=== PATIENT | female | born 1965 | race American Indian/Alaskan Native ===

== ENCOUNTER 2017-03-25 03:03 | Emergency (ER) | payer MEDICAID ==
--- NOTE | 2017-03-25 03:15 | EDM.PDOC ---
ED HPI SEIZURE COMPLAINT - General Source of Information: Reports: Patient, EMS History Limitations: Reports: No limitations - History of Present Illness Timing/Duration: Reports: minutes:, resolved prior to arrival Event (Witnessed/Unwitnessed): witnessed Quality: Reports: focal shaking ( and stiffening) Severity: moderate Context: Denies: new/change in medications, missed med dose(s), illness, photo stimulation Pre Event Symptom(s): Reports: no other symptoms Event Symptoms: Reports: tongue biting Post Event Symptoms: Denies: confused, altered speech <Huma Sal - Last Filed: 03/25/17 06:46> <Steven Rodriguez - Last Filed: 03/25/17 07:34> - General Stated Complaint: IN BY AMBULANCE Time Seen by Provider: 03/25/17 03:03 - History of Present Illness INITIAL COMMENTS - FREE TEXT/NARRATIVE: ED via [facility] with hx seizure x 2. First witnessed by family and EMS called. @nd by EMS, focal with stiffening. No incontinence. Prior to seizure per EMS patient alert oriented. moving all extremities and answering questions appropriately. Following 2nd seizure EMS gave 5mg valium. Patient drowsy on arrival but able to answer questions. Last seizure reported one year ago. Notes she is taking medications as prescribed. Denies any recent illness. Drug paraphernalia found in patients pocket with white powder (Huma Sal ) - Related Data Allergies/ADRs: Allergies Allergy/AdvReac Type Severity Reaction Status Date / Time ibuprofen [From Motrin] Allergy Unknown NAUSEA,VOMI Verified 03/25/17 02:55 TING omeprazole [From Prilosec] Allergy Unknown Rash Verified 03/25/17 02:55 omeprazole magnesium Allergy Unknown Rash Verified 03/25/17 02:55 [From Prilosec] sulfamethoxazole Allergy Unknown UKNOWN Verified 03/25/17 02:55 [From Bactrim] trimethoprim [From Bactrim] Allergy Unknown [place] Verified 03/25/17 02:55 amoxicillin [Amoxicillin] Allergy Hives Verified 03/25/17 02:55 aspirin Allergy Bleeding Verified 03/25/17 02:55 codeine Allergy Stomach Verified 03/25/17 02:55 Upset doxycycline Allergy Rash Verified 03/25/17 02:55 fosphenytoin [Fosphenytoin] Allergy Hives Verified 03/25/17 02:55 meperidine HCl [From Demerol] Allergy Rash Verified 03/25/17 02:55 Penicillins Allergy Stomach Verified 03/25/17 02:55 Upset PRILOSE Allergy Unknown Rash Uncoded 03/25/17 02:55 Home Meds: Home Meds PHENobarbital 32.4 mg PO TID 01/28/14 [History] Phenytoin Sodium Extended [Dilantin] 100 mg PO QID 03/28/14 [History] Loratadine 10 mg PO DAILY 11/28/16 [History] PARoxetine HCl [Paroxetine HCl] 10 mg PO DAILY 11/28/16 [History] Ranitidine HCl 150 mg PO BID 11/28/16 [History] Past Medical History Respiratory History: Reports: Bronchitis, recurrent Other Respiratory History: states she was told her left lung was swollen at one time Neurological History: Reports: Frequent repetitive habits (TICS), Seizure Psychiatric History: Reports: Anxiety Endocrine/Metabolic History: Reports: Diabetes, type II Other Dermatologic History: takes Benadryl daily for itchy skin <Huma Sal - Last Filed: 03/25/17 06:46> Social & Family History - Family History Family Medical History: Noncontributory - Tobacco Use Smoking Status *Q: Current Every Day Smoker Years of Tobacco use: 4 Packs/Tins Daily: 0.5 Used Tobacco, but Quit: No Second Hand Smoke Exposure: No - Alcohol Use Days Per Week of Alcohol Use: 0 - Recreational Drug Use Recreational Drug Use: No - Living Situation & Occupation Living situation: Reports: with family Occupation: disabled <Huma Sal - Last Filed: 03/25/17 06:46> ED ROS GENERAL - Review of Systems Review Of Systems: See Below Constitutional: Reports: no symptoms HEENT: Reports: No symptoms Respiratory: Reports: No Symptoms Cardiovascular: Reports: No symptoms GI/Abdominal: Reports: No symptoms : Reports: no symptoms Musculoskeletal: Reports: no symptoms Neurological: Reports: Seizure Psychiatric: Reports: No symptoms <Huma Sal - Last Filed: 03/25/17 06:46> - Physical Exam Exam: See Below Exam Limited By: No limitations General Appearance: mild distress, obese, other (drowsy, arouses and answers questions) Ears: normal external exam Nose: normal inspection Throat/Mouth: Normal gums, Evidence of tongue biting. No: Normal teeth (absent) Head Exam: atraumatic, normocephalic Neck: normal inspection Respiratory/Chest: no respiratory distress, lungs clear, normal breath sounds Cardiovascular: normal peripheral pulses, regular rate, rhythm GI/Abdominal: normal bowel sounds Neuro Exam (Abbreviated): oriented, normal cognition, slow to respond Extremities: normal inspection Skin Exam: Warm, Dry, Intact, Tattoo(s) <Huma Sal - Last Filed: 03/25/17 06:46> EKG INTERPRETATION Rhythm: NSR <Huma Sal - Last Filed: 03/25/17 06:46> Course <Huma Sal - Last Filed: 03/25/17 06:46> <Steven Rodriguez - Last Filed: 03/25/17 07:34> - Vital Signs Last Recorded V/S: Last Vital Signs Temp 37.0 C 03/25/17 03:07 Pulse 102 H 03/25/17 03:07 Resp 16 03/25/17 03:07 BP 131/75 03/25/17 03:07 Pulse Ox 96 03/25/17 03:39 (Huma Sal) (Steven Rodriguez) - Orders/Labs/Meds Orders: Active Orders 24 hr Category Date Time Status EKG 12 Lead [EKG Documentation Completion] [RC] URGENT Care 03/25/17 03:06 Active Regular Diet [DIET] Diet 03/25/17 Breakfast Active (Huma Sal) (Steven Rodriguez) Labs: Laboratory Tests 03/25/17 03/25/17 03/25/17 Range/Units 03:20 03:20 03:25 WBC 13.4 H (5.0-10.0) 10^3/uL RBC 4.69 (4.2-5.4) 10^6/uL Hgb 13.4 (12.0-16.0) g/dL Hct 40.7 (37.0-47.0) % MCV 86.8 (80-100) fL MCH 28.6 (27.0-34.0) pg MCHC 32.9 L (33.0-35.0) g/dL Plt Count 307 (150-450) 10^3/uL Neut % (Auto) 74.7 (42.2-75.2) % Lymph % (Auto) 11.7 L (20.5-50.1) % Dickens % (Auto) 8.0 (2-8) % Eos % (Auto) 5.3 H (1.0-3.0) % Baso % (Auto) 0.3 (0.0-1.0) % Sodium (135-145) mmol/L Potassium (3.6-5.0) mmol/L Chloride (101-111) mmol/L Carbon Dioxide (21.0-31.0) mmol/L Anion Gap BUN (7-18) mg/dL Creatinine (0.6-1.3) mg/dL Est Cr Clr Drug Dosing mL/min Estimated GFR (MDRD) BUN/Creatinine Ratio Glucose (74-105) mg/dL Calcium (8.4-10.2) mg/dl Total Bilirubin (0.2-1.0) mg/dL AST (10-42) IU/L ALT (10-60) IU/L Alkaline Phosphatase (42-121) IU/L Troponin I (0.00-0.08) ng/mL Total Protein (6.7-8.2) g/dl Albumin (3.2-5.5) g/dl Globulin Albumin/Globulin Ratio Urine Color Yellow (YELLOW) Urine Appearance Clear (CLEAR) Urine pH 5.5 (5.0-9.0) Ur Specific [place] <= 1.005 (1.005-1.030) Urine Protein Negative (NEGATIVE) Urine Glucose (UA) Negative (NEGATIVE) Urine Ketones Negative (NEGATIVE) Urine Occult Blood Negative (NEGATIVE) Urine Nitrite Negative (NEGATIVE) Urine Bilirubin Negative (NEGATIVE) Urine Urobilinogen 0.2 (0.2-1.0) mg/dL Ur Leukocyte Esterase Negative (NEGATIVE) Urine RBC Not seen /HPF Urine WBC 10-20 H (0-5/HPF) /HPF Ur Epithelial Cells Moderate H /HPF Urine Bacteria Moderate H (0-FEW/HPF) /HPF Urine Yeast Few H (0/HPF) /HPF Urine Opiates Screen Negative (NEGATIVE) Ur Oxycodone Screen Negative (NEGATIVE) Urine Methadone Screen Negative (NEGATIVE) Ur Barbiturates Screen Positive H (NEGATIVE) Phenytoin (10-20) ug/dL U Tricyclic Antidepress Negative (NEGATIVE) Ur Phencyclidine Scrn Negative (NEGATIVE) Ur Amphetamine Screen Negative (NEGATIVE) U Methamphetamines Scrn Positive H (NEGATIVE) Urine MDMA Screen Negative (NEGATIVE) U Benzodiazepines Scrn Negative (NEGATIVE) Urine Cocaine Screen Negative (NEGATIVE) U Marijuana (THC) Screen Negative (NEGATIVE) Ethyl Alcohol mg/dL 03/25/17 03/25/17 Range/Units 03:25 03:25 WBC (5.0-10.0) 10^3/uL RBC (4.2-5.4) 10^6/uL Hgb (12.0-16.0) g/dL Hct (37.0-47.0) % MCV (80-100) fL MCH (27.0-34.0) pg MCHC (33.0-35.0) g/dL Plt Count (150-450) 10^3/uL Neut % (Auto) (42.2-75.2) % Lymph % (Auto) (20.5-50.1) % Dickens % (Auto) (2-8) % Eos % (Auto) (1.0-3.0) % Baso % (Auto) (0.0-1.0) % Sodium 135 (135-145) mmol/L Potassium 3.2 L (3.6-5.0) mmol/L Chloride 106 (101-111) mmol/L Carbon Dioxide 20.0 L (21.0-31.0) mmol/L Anion Gap 12.2 BUN 15 (7-18) mg/dL Creatinine 0.7 (0.6-1.3) mg/dL Est Cr Clr Drug Dosing 82.10 mL/min Estimated GFR (MDRD) > 60 BUN/Creatinine Ratio 21.42 Glucose 118 H (74-105) mg/dL Calcium 8.4 (8.4-10.2) mg/dl Total Bilirubin 0.3 (0.2-1.0) mg/dL AST 18 (10-42) IU/L ALT 17 (10-60) IU/L Alkaline Phosphatase 170 H (42-121) IU/L Troponin I < 0.02 (0.00-0.08) ng/mL Total Protein 7.8 (6.7-8.2) g/dl Albumin 3.9 (3.2-5.5) g/dl Globulin 3.9 Albumin/Globulin Ratio 1.00 Urine Color (YELLOW) Urine Appearance (CLEAR) Urine pH (5.0-9.0) Ur Specific [place] (1.005-1.030) Urine Protein (NEGATIVE) Urine Glucose (UA) (NEGATIVE) Urine Ketones (NEGATIVE) Urine Occult Blood (NEGATIVE) Urine Nitrite (NEGATIVE) Urine Bilirubin (NEGATIVE) Urine Urobilinogen (0.2-1.0) mg/dL Ur Leukocyte Esterase (NEGATIVE) Urine RBC /HPF Urine WBC (0-5/HPF) /HPF Ur Epithelial Cells /HPF Urine Bacteria (0-FEW/HPF) /HPF Urine Yeast (0/HPF) /HPF Urine Opiates Screen (NEGATIVE) Ur Oxycodone Screen (NEGATIVE) Urine Methadone Screen (NEGATIVE) Ur Barbiturates Screen (NEGATIVE) Phenytoin 4.4 L (10-20) ug/dL U Tricyclic Antidepress (NEGATIVE) Ur Phencyclidine Scrn (NEGATIVE) Ur Amphetamine Screen (NEGATIVE) U Methamphetamines Scrn (NEGATIVE) Urine MDMA Screen (NEGATIVE) U Benzodiazepines Scrn (NEGATIVE) Urine Cocaine Screen (NEGATIVE) U Marijuana (THC) Screen (NEGATIVE) Ethyl Alcohol < 5 mg/dL (Steven Rodriguez) Meds: Medications Discontinued Medications Generic Name Dose Route Start Last Admin Trade Name Boq PRN Reason Stop Dose Admin Phenytoin Sodium 250 mg 03/25/17 03:56 03/25/17 04:09 Phenytoin IVPUSH 03/25/17 03:57 250 mg ONETIME ONE Administration Phenytoin Sodium 100 mg 03/25/17 04:03 03/25/17 04:14 Phenytoin PO 03/25/17 04:04 100 mg ONETIME ONE Administration Potassium Chloride 20 meq 03/25/17 04:03 03/25/17 04:14 Klor-Con 10 PO 03/25/17 04:04 20 meq ONETIME ONE Administration (Steven Rodriguez) - Re-Assessments/Exams Free Text/Narrative Re-Assessment/Exam: 03/25/17 03:46 UDS methamphetamine positive. (Huma Sal) Departure - Departure Condition: good <Huma Sal - Last Filed: 03/25/17 06:46> - Departure Time of Disposition: 07:33 <Steven Rodriguez - Last Filed: 03/25/17 07:34> - Departure Disposition: Home, Self-Care 01 Clinical Impression: Seizure disorder, Subtherapeutic serum phenytoin level, Methamphetamine abuse Instructions: Seizure, Adult, [id number] Forms: ED Department Discharge Additional Instructions: Take seizure medications as prescribed. Do not use methamphetamine. Seek substance abuse treatment if needed. Recheck Dilantin level on Tuesday in Clinic.
[2017-03-25 03:48] LABS: CHLORIDE,CL 106 mmol/L (101-111); SODIUM,NA 135 mmol/L (135-145)
[2017-03-25] MEDS ORDERED: Phenytoin 250 MG/5 ML SDV IVPUSH ONE (03:56)
[2017-03-25] MEDS ORDERED: Potassium Chloride 10 MEQ Tab.ER PO ONE (04:03)
[2017-03-25] MEDS ORDERED: Phenytoin 100 MG Cap.ER PO ONE (04:03)
[2017-03-25 07:49] VITALS: BP 139/76
--- NOTE | 2017-03-27 03:02 | EKG ---
03/25/2017 - GILLIAN HARRINGTON - TIME OF EK:10. EKG, per my reading, shows sinus rhythm with inferior Q-waves. [facility] /[id number]
== END 2017-03-25 10:52 | disposition home or self-care (01) ==
LOC: DL.ED 03:03
DX: G40.909 Epilepsy, unspecified, not intractable, without status epilepticus (principal); R78.89 Finding of other specified substances, not normally found in blood; F15.10 Other stimulant abuse, uncomplicated; F17.210 Nicotine dependence, cigarettes, uncomplicated; E11.9 Type 2 diabetes mellitus without complications
CPT/HCPCS: 36415; 70450; 80053; 80185; 80305; 81001; 84484; 85025; 93005; 96374; 99285; A9270; G0480; J1165

== ENCOUNTER 2017-05-25 20:14 | Emergency (ER) | payer MEDICAID ==
[2017-05-25 20:19] VITALS: BP 132/68
--- NOTE | 2017-05-25 20:32 | EDM.PDOC ---
ED HPI GENERAL MEDICAL PROBLEM - General Chief Complaint: Lower Extremity Injury/Pain Stated Complaint: AMBULANCE Time Seen by Provider: 05/25/17 20:20 Source of Information: Reports: Patient, EMS History Limitations: Reports: No Limitations - History of Present Illness INITIAL COMMENTS - FREE TEXT/NARRATIVE: This 52 yo female patient was brought to the ED by [facility] with left foot pain. The patient reports she tripped on Tuesday and has gotten worse since that time. The patient reports she is unable to walk due to the pain. Onset Date: 05/22/17 Duration: Constant Location: Reports: Lower Extremity, Left Quality: Reports: Ache Severity: Mild Improves with: Reports: None Worsens with: Reports: None Associated Symptoms: Reports: No Other Symptoms Treatments [employer]: Reports: Cold Therapy Left Feet Pain Score (Numeric/FACES): 8 - Related Data Allergies Allergy/AdvReac Type Severity Reaction Status Date / Time ibuprofen [From Motrin] Allergy Unknown NAUSEA,VOMI Verified 05/25/17 20:16 TING omeprazole [From Prilosec] Allergy Unknown Rash Verified 05/25/17 20:16 omeprazole magnesium Allergy Unknown Rash Verified 05/25/17 20:16 [From Prilosec] sulfamethoxazole Allergy Unknown [place] Verified 05/25/17 20:16 [From Bactrim] trimethoprim [From Bactrim] Allergy Unknown [place] Verified 05/25/17 20:16 amoxicillin [Amoxicillin] Allergy Hives Verified 05/25/17 20:16 aspirin Allergy Bleeding Verified 05/25/17 20:16 codeine Allergy Stomach Verified 05/25/17 20:16 Upset doxycycline Allergy Rash Verified 05/25/17 20:16 fosphenytoin [Fosphenytoin] Allergy Hives Verified 05/25/17 20:16 meperidine HCl [From Demerol] Allergy Rash Verified 05/25/17 20:16 Penicillins Allergy Stomach Verified 05/25/17 20:16 Upset PRILOSE Allergy Unknown Rash Uncoded 03/25/17 02:55 Home Meds: Home Meds PHENobarbital 30 mg PO QID 01/28/14 [History] Phenytoin Sodium Extended [Dilantin] 100 mg PO ASDIRECTED 03/28/14 [History] Loratadine 10 mg PO DAILY 11/28/16 [History] PARoxetine HCl [Paroxetine HCl] 10 mg PO DAILY 11/28/16 [History] Ranitidine HCl 150 mg PO BID 11/28/16 [History] Past Medical History Respiratory History: Reports: Bronchitis, Recurrent Other Respiratory History: states she was told her left lung was swollen at one time Gastrointestinal History: Reports: GERD Genitourinary History: Reports: Urinary Incontinence Neurological History: Reports: Frequent Repetitive Habits (TICS), Seizure Psychiatric History: Reports: Anxiety Endocrine/Metabolic History: Reports: Diabetes, Type II Other Dermatologic History: takes Benadryl daily for itchy skin - Past Surgical History GI Surgical History: Reports: Cholecystectomy Social & Family History - Family History Family Medical History: Noncontributory - Tobacco Use Smoking Status *Q: Former Smoker Years of Tobacco use: 4 Packs/Tins Daily: 0.5 Used Tobacco, but Quit: Yes Month Tobacco Last Used: 2014 Second Hand Smoke Exposure: No - Caffeine Use Caffeine Use: Reports: Coffee, Soda - Alcohol Use Days Per Week of Alcohol Use: 0 - Recreational Drug Use Recreational Drug Use: No - Living Situation & Occupation Living situation: Reports: with Family Occupation: Disabled Review of Systems - Review of Systems Review Of Systems: ROS reveals no pertinent complaints other than HPI. ED EXAM, GENERAL - Physical Exam Exam: See Below Exam Limited By: No Limitations General Appearance: Alert, WD/WN, Moderate Distress Eye Exam: Bilateral Eye: EOMI, Normal Inspection, PERRL Ears: Normal External Exam, Normal Canal, Hearing Grossly Normal, Normal TMs Nose: Normal Inspection, Normal Mucosa, No Blood Throat/Mouth: Normal Inspection, Normal Lips, Normal Teeth, Normal Gums, Normal Oropharynx, Normal Voice, No Airway Compromise Head: Atraumatic, Normocephalic Neck: Normal Inspection, Supple, Non-Tender, Full Range of Motion Respiratory/Chest: No Respiratory Distress, Lungs Clear, Normal Breath Sounds, No Accessory Muscle Use, Chest Non-Tender Cardiovascular: Normal Peripheral Pulses, Regular Rate, Rhythm, No Edema, No Gallop, No JVD, No Murmur, No Rub GI/Abdominal: Normal Bowel Sounds, Soft, Non-Tender, No Organomegaly, No Distention, No Abnormal Bruit, No Mass (Female) Exam: Deferred Rectal (Female) Exam: Deferred Back Exam: Normal Inspection, Full Range of Motion, NT Extremities: Other (left foot) Neurological: Alert, Oriented, CN II-XII Intact, Normal Cognition, Normal Gait, Normal Reflexes, No Motor/Sensory Deficits Psychiatric: Normal Affect, Normal Mood Skin Exam: Warm, Dry, Intact, Normal Color, No Rash Lymphatic: No Adenopathy Course - Vital Signs Last Recorded V/S: Last Vital Signs Temp 36.6 C 05/25/17 20:18 Pulse 80 05/25/17 20:18 Resp 20 05/25/17 20:18 BP 132/68 05/25/17 20:18 Pulse Ox 98 05/25/17 20:18 - Orders/Labs/Meds Orders: Active Orders 24 hr Category Date Time Status DME for Discharge [COMM] Urgent Oth 05/25/17 21:18 Ordered Meds: Medications Discontinued Medications Generic Name Dose Route Start Last Admin Trade Name [place] PRN Reason Stop Dose Admin Hydrocodone Bitart/Acetaminophen 1 tab 05/25/17 21:23 [place] 325-10 Mg PO 05/25/17 21:24 ONETIME ONE Departure - Departure Time of Disposition: 21:33 Disposition: Home, Self-Care 01 Condition: Fair Clinical Impression: Metatarsal bone fracture Qualifiers: Encounter type: initial encounter Metatarsal bone: unspecified metatarsal Fracture type: closed Fracture alignment: nondisplaced Laterality: left Qualified Code(s): S92.302A - Fracture of unspecified metatarsal bone(s), left foot, initial encounter for closed fracture - Discharge Information Instructions: Metatarsal Fracture Forms: ED Department Discharge Care Plan Goals: The patient was advised of the examination and x-ray results during the visit. The patient was placed in a walking boot for immobilization and given a set of crutches. The patient is to remain non weight bearing on her left foot. The patient should follow-up with podiatry at [facility] this week for continued evaluation and further management. The patient was given a dose of [place] while in the ED. If the patient has any additional symptoms or concerns, the patient should follow-up with her primary care facility or return to the emergency department. - My Orders Last 24 Hours: My Active Orders 05/25/17 21:18 DME for Discharge [COMM] Urgent - Assessment/Plan Last 24 Hours: My Active Orders 05/25/17 21:18 DME for Discharge [COMM] Urgent
[2017-05-25] MEDS ORDERED: Acetaminophen/HYDROcodone 325-10 MG Tab PO ONE (21:23)
== END 2017-05-25 21:50 | disposition home or self-care (01) ==
LOC: DL.ED 20:14
DX: S92.512A Displaced fracture of proximal phalanx of left lesser toe(s), initial encounter for closed fracture (principal); W18.40XA Slipping, tripping and stumbling without falling, unspecified, initial encounter; Z88.5 Allergy status to narcotic agent; Z79.899 Other long term (current) drug therapy; K21.9 Gastro-esophageal reflux disease without esophagitis; F41.9 Anxiety disorder, unspecified; E11.9 Type 2 diabetes mellitus without complications; Z90.49 Acquired absence of other specified parts of digestive tract; Z88.8 Allergy status to other drugs, medicaments and biological substances; Z87.891 Personal history of nicotine dependence
CPT/HCPCS: 73630; 99283; A9270

== ENCOUNTER 2017-07-23 13:40 | Emergency (ER) | payer MEDICAID ==
[2017-07-23] MEDS ORDERED: Sodium Chloride 0.9% 10 ML Syringe FLUSH PRN (13:42)
[2017-07-23] MEDS ORDERED: Sodium Chloride 0.9% 1,000 ML IV ONE (13:50)
[2017-07-23 14:18] LABS: CHLORIDE,CL 110 mmol/L (101-111); SODIUM,NA 142 mmol/L (135-145)
[2017-07-23] MEDS ORDERED: Potassium Chloride 10 MEQ in Premix Bag 1 BAG IV ONE (14:46)
[2017-07-23] MEDS ORDERED: Phenytoin 250 MG/5 ML SDV IVPUSH ONE (14:58)
--- NOTE | 2017-07-23 16:47 | EDM.PDOC ---
Scribed by Tere Bermudez 07/23/17 1612 for Steven Rodriguez MD ED HPI GENERAL MEDICAL PROBLEM - General Chief Complaint: Neuro Symptoms/Deficits Stated Complaint: IN BY AMBULANCE Time Seen by Provider: 07/23/17 13:37 Source of Information: Reports: Patient, EMS, RN, RN Notes Reviewed - History of Present Illness INITIAL COMMENTS - FREE TEXT/NARRATIVE: Arrives from home by ambulance with complaint of 2 seizures, one at about 8 a.m. this morning and one about 1 p.m. Patient states that she has not missed any Dilantin or Phenobarbital doses. Both seizures were witnessed by family. Patient denies any injury (s) associated with the seizures. Denies pain, fever, chills, headache, nausea, vomiting or urinary symptoms. Location: Reports: Generalized Quality: Reports: Ache Severity: Moderate Improves with: Reports: None Worsens with: Reports: None Associated Symptoms: Reports: No Other Symptoms - Related Data Allergies Allergy/AdvReac Type Severity Reaction Status Date / Time ibuprofen [From Motrin] Allergy Unknown NAUSEA,VOMI Verified 05/25/17 20:16 TING omeprazole [From Prilosec] Allergy Unknown Rash Verified 05/25/17 20:16 omeprazole magnesium Allergy Unknown Rash Verified 05/25/17 20:16 [From Prilosec] sulfamethoxazole Allergy Unknown UKNOWN Verified 05/25/17 20:16 [From Bactrim] trimethoprim [From Bactrim] Allergy Unknown UKNOWN Verified 05/25/17 20:16 amoxicillin [Amoxicillin] Allergy Hives Verified 05/25/17 20:16 aspirin Allergy Bleeding Verified 05/25/17 20:16 codeine Allergy Stomach Verified 05/25/17 20:16 Upset doxycycline Allergy Rash Verified 05/25/17 20:16 fosphenytoin [Fosphenytoin] Allergy Hives Verified 05/25/17 20:16 meperidine HCl [From Demerol] Allergy Rash Verified 05/25/17 20:16 Penicillins Allergy Stomach Verified 05/25/17 20:16 Upset PRILOSE Allergy Unknown Rash Uncoded 03/25/17 02:55 Home Meds: Home Meds PHENobarbital 30 mg PO QID 01/28/14 [History] Phenytoin Sodium Extended [Dilantin] 100 mg PO QID 03/28/14 [History] PARoxetine HCl [Paroxetine HCl] 10 mg PO DAILY 11/28/16 [History] Ranitidine HCl 150 mg PO BID 11/28/16 [History] Albuterol [Proventil HFA] 2 puff INH ASDIRECTED PRN 07/23/17 [History] Melatonin 5 mg PO ASDIRECTED PRN 07/23/17 [History] diphenhydrAMINE [Benadryl] 1 cap PO BEDTIME PRN 07/23/17 [History] Past Medical History Respiratory History: Reports: Bronchitis, Recurrent Other Respiratory History: states she was told her left lung was swollen at one time Gastrointestinal History: Reports: GERD Genitourinary History: Reports: Urinary Incontinence Neurological History: Reports: Frequent Repetitive Habits (TICS), Seizure Psychiatric History: Reports: Anxiety Endocrine/Metabolic History: Reports: Diabetes, Type II Other Dermatologic History: takes Benadryl daily for itchy skin - Past Surgical History GI Surgical History: Reports: Cholecystectomy Social & Family History - Family History Family Medical History: Noncontributory - Tobacco Use Smoking Status *Q: Former Smoker Years of Tobacco use: 4 Packs/Tins Daily: 0.5 Used Tobacco, but Quit: Yes Month Tobacco Last Used: 2014 Second Hand Smoke Exposure: No - Caffeine Use Caffeine Use: Reports: Coffee, Soda - Alcohol Use Days Per Week of Alcohol Use: 0 - Recreational Drug Use Recreational Drug Use: No - Living Situation & Occupation Living situation: Reports: with Family Occupation: Disabled ED ROS GENERAL - Review of Systems Review Of Systems: ROS reveals no pertinent complaints other than HPI. - Physical Exam Exam: See Below Exam Limited By: No Limitations General Appearance: Other (chronically ill appearing. Obese.) Eye Exam: Bilateral Eye: Normal Inspection Ears: Normal External Exam, Normal Canal, Hearing Grossly Normal, Normal TMs Nose: Normal Inspection, Normal Mucosa, No Blood Throat/Mouth: Other (dry oral membranes. Missing teeth. ) Head Exam: Atraumatic, Normocephalic Neck: Full Range of Motion, Other (No nuchal rigidity) Respiratory/Chest: Other (occasional dry douch.) Cardiovascular: Normal Peripheral Pulses, Regular Rate, Rhythm, No Edema, No Gallop, No JVD, No Murmur, No Rub GI/Abdominal: Other (benign obese abdomen.) (Female) Exam: Deferred Rectal (Female) Exam: Deferred Neuro Exam (Abbreviated): Alert, Oriented, CN II-XII Intact, Normal Cognition, Normal Gait, Normal Reflexes, No Motor/Sensory Deficits Back Exam: Normal Inspection, Full Range of Motion, NT Extremities: Normal Inspection, Normal Range of Motion, Non-Tender, No Pedal Edema, Normal Capillary Refill Psychiatric: Normal Affect, Normal Mood Skin Exam: Other (veru superficial abrasion to left anterior carreno.) Course - Vital Signs Last Recorded V/S: Last Vital Signs Temp 36.2 C 07/23/17 15:14 Pulse 82 07/23/17 15:14 Resp 24 H 07/23/17 15:14 BP 104/60 07/23/17 15:14 Pulse Ox 100 07/23/17 15:14 - Orders/Labs/Meds Orders: Active Orders 24 hr Category Date Time Status Peripheral IV Care [RC] . DIRECTED Care 07/23/17 13:42 Active Sodium Chloride 0.9% [Saline Flush] Med 07/23/17 13:42 Active 10 ml FLUSH ASDIRECTED PRN Peripheral IV Insertion Adult [OM.PC] Stat Oth 07/23/17 13:41 Ordered Seizure Precautions [OM.PC] Routine Oth 07/23/17 14:41 Ordered Medication Orders Sodium Chloride (Saline Flush) 10 ml FLUSH ASDIRECTED PRN PRN Reason: Keep Vein Open Last Admin: 07/23/17 14:21 Dose: 10 ml Labs: Laboratory Tests 07/23/17 07/23/17 07/23/17 Range/Units 13:51 13:51 13:51 WBC 9.6 (5.0-10.0) 10^3/uL RBC 4.26 (4.2-5.4) 10^6/uL Hgb 12.1 (12.0-16.0) g/dL Hct 37.1 (37.0-47.0) % MCV 87.1 (80-100) fL MCH 28.4 (27.0-34.0) pg MCHC 32.6 L (33.0-35.0) g/dL Plt Count 287 (150-450) 10^3/uL Neut % (Auto) 76.5 H (42.2-75.2) % Lymph % (Auto) 8.6 L (20.5-50.1) % Holmes % (Auto) 8.9 H (2-8) % Eos % (Auto) 5.7 H (1.0-3.0) % Baso % (Auto) 0.3 (0.0-1.0) % Sodium 142 (135-145) mmol/L Potassium 3.0 L (3.6-5.0) mmol/L Chloride 110 (101-111) mmol/L Carbon Dioxide 21.0 (21.0-31.0) mmol/L Anion Gap 14.0 BUN 7 (7-18) mg/dL Creatinine 0.7 (0.6-1.3) mg/dL Est Cr Clr Drug Dosing 95.91 mL/min Estimated GFR (MDRD) > 60 BUN/Creatinine Ratio 10.00 Glucose 112 H (74-105) mg/dL Calcium 8.1 L (8.4-10.2) mg/dl Total Bilirubin 0.3 (0.2-1.0) mg/dL AST 15 (10-42) IU/L ALT 15 (10-60) IU/L Alkaline Phosphatase 172 H (42-121) IU/L Lactate Dehydrogenase 161 (91-180) IU/L Creatine Kinase 77 (26-174) IU/L Total Protein 6.9 (6.7-8.2) g/dl Albumin 3.7 (3.2-5.5) g/dl Globulin 3.2 Albumin/Globulin Ratio 1.16 Urine Color (YELLOW) Urine Appearance (CLEAR) Urine pH (5.0-9.0) Ur Specific Conde (1.005-1.030) Urine Protein (NEGATIVE) Urine Glucose (UA) (NEGATIVE) Urine Ketones (NEGATIVE) Urine Occult Blood (NEGATIVE) Urine Nitrite (NEGATIVE) Urine Bilirubin (NEGATIVE) Urine Urobilinogen (0.2-1.0) mg/dL Ur Leukocyte Esterase (NEGATIVE) Urine RBC /HPF Urine WBC (0-5/HPF) /HPF Ur Epithelial Cells /HPF Amorphous Sediment (0/HPF) /HPF Urine Bacteria (0-FEW/HPF) /HPF Urine Mucus /LPF Urine Opiates Screen (NEGATIVE) Ur Oxycodone Screen (NEGATIVE) Urine Methadone Screen (NEGATIVE) Ur Barbiturates Screen (NEGATIVE) Phenytoin 6.9 L (10-20) ug/dL U Tricyclic Antidepress (NEGATIVE) Ur Phencyclidine Scrn (NEGATIVE) Ur Amphetamine Screen (NEGATIVE) U Methamphetamines Scrn (NEGATIVE) Urine MDMA Screen (NEGATIVE) U Benzodiazepines Scrn (NEGATIVE) Urine Cocaine Screen (NEGATIVE) U Marijuana (THC) Screen (NEGATIVE) Ethyl Alcohol < 5 mg/dL 07/23/17 07/23/17 Range/Units 14:08 14:08 WBC (5.0-10.0) 10^3/uL RBC (4.2-5.4) 10^6/uL Hgb (12.0-16.0) g/dL Hct (37.0-47.0) % MCV (80-100) fL MCH (27.0-34.0) pg MCHC (33.0-35.0) g/dL Plt Count (150-450) 10^3/uL Neut % (Auto) (42.2-75.2) % Lymph % (Auto) (20.5-50.1) % Holmes % (Auto) (2-8) % Eos % (Auto) (1.0-3.0) % Baso % (Auto) (0.0-1.0) % Sodium (135-145) mmol/L Potassium (3.6-5.0) mmol/L Chloride (101-111) mmol/L Carbon Dioxide (21.0-31.0) mmol/L Anion Gap BUN (7-18) mg/dL Creatinine (0.6-1.3) mg/dL Est Cr Clr Drug Dosing mL/min Estimated GFR (MDRD) BUN/Creatinine Ratio Glucose (74-105) mg/dL Calcium (8.4-10.2) mg/dl Total Bilirubin (0.2-1.0) mg/dL AST (10-42) IU/L ALT (10-60) IU/L Alkaline Phosphatase (42-121) IU/L Lactate Dehydrogenase (91-180) IU/L Creatine Kinase (26-174) IU/L Total Protein (6.7-8.2) g/dl Albumin (3.2-5.5) g/dl Globulin Albumin/Globulin Ratio Urine Color Yellow (YELLOW) Urine Appearance Slightly cloudy (CLEAR) Urine pH 7.0 (5.0-9.0) Ur Specific Conde 1.010 (1.005-1.030) Urine Protein Negative (NEGATIVE) Urine Glucose (UA) Negative (NEGATIVE) Urine Ketones Negative (NEGATIVE) Urine Occult Blood Negative (NEGATIVE) Urine Nitrite Negative (NEGATIVE) Urine Bilirubin Negative (NEGATIVE) Urine Urobilinogen 1.0 (0.2-1.0) mg/dL Ur Leukocyte Esterase Trace H (NEGATIVE) Urine RBC 0-5 /HPF Urine WBC 5-10 H (0-5/HPF) /HPF Ur Epithelial Cells Few /HPF Amorphous Sediment Rare (0/HPF) /HPF Urine Bacteria Few (0-FEW/HPF) /HPF Urine Mucus Rare /LPF Urine Opiates Screen Negative (NEGATIVE) Ur Oxycodone Screen Negative (NEGATIVE) Urine Methadone Screen Negative (NEGATIVE) Ur Barbiturates Screen Positive H (NEGATIVE) Phenytoin (10-20) ug/dL U Tricyclic Antidepress Negative (NEGATIVE) Ur Phencyclidine Scrn Negative (NEGATIVE) Ur Amphetamine Screen Positive H (NEGATIVE) U Methamphetamines Scrn Positive H (NEGATIVE) Urine MDMA Screen Negative (NEGATIVE) U Benzodiazepines Scrn Negative (NEGATIVE) Urine Cocaine Screen Negative (NEGATIVE) U Marijuana (THC) Screen Negative (NEGATIVE) Ethyl Alcohol mg/dL Meds: Medications Generic Name Dose Route Start Last Admin Trade Name Freq PRN Reason Stop Dose Admin Sodium Chloride 10 ml 07/23/17 13:42 07/23/17 14:21 Saline Flush FLUSH 10 ml ASDIRECTED PRN Administration Keep Vein Open Discontinued Medications Generic Name Dose Route Start Last Admin Trade Name Freq PRN Reason Stop Dose Admin Diazepam 10 mg 07/23/17 14:15 07/23/17 14:20 Valium IVPUSH 07/23/17 14:16 10 mg ONETIME ONE Administration Sodium Chloride 1,000 mls @ 999 mls/hr 07/23/17 13:50 07/23/17 14:20 Normal Saline IV 07/23/17 14:50 999 mls/hr .BOLUS ONE Administration Potassium Chloride 10 meq/ 100 mls @ 100 mls/hr 07/23/17 14:46 07/23/17 15:26 Premix IV 07/23/17 15:45 100 mls/hr ONETIME ONE Administration Phenytoin Sodium 250 mg 07/23/17 14:58 07/23/17 15:29 Phenytoin IVPUSH 07/23/17 14:59 250 mg ONETIME ONE Administration - Radiology Interpretation Free Text/Narrative:: Chest x-ray: Mild opacity in the left base may represent atelectasis or pneumonia. See rad report. Departure - Departure Time of Disposition: 16:15 Disposition: Home, Self-Care 01 Condition: Fair Clinical Impression: Recurrent seizures, Methamphetamine abuse, Hypokalemia, Subtherapeutic serum phenytoin level - Discharge Information Instructions: Hypokalemia, Stimulant Use Disorder-Methamphetamines, Seizure, Adult, [id number] Forms: ED Department Discharge Additional Instructions: Follow up in clinic in 3 to 4 days. - My Orders Last 24 Hours: My Active Orders 07/23/17 13:41 Peripheral IV Insertion Adult [OM.PC] Stat 07/23/17 13:42 Peripheral IV Care [RC] . DIRECTED Sodium Chloride 0.9% [Saline Flush] 10 ml FLUSH ASDIRECTED PRN 07/23/17 14:41 Seizure Precautions [OM.PC] Routine - Assessment/Plan Last 24 Hours: My Active Orders 07/23/17 13:41 Peripheral IV Insertion Adult [OM.PC] Stat 07/23/17 13:42 Peripheral IV Care [RC] . DIRECTED Sodium Chloride 0.9% [Saline Flush] 10 ml FLUSH ASDIRECTED PRN 07/23/17 14:41 Seizure Precautions [OM.PC] Routine I have read and agree with the documentation that has been completed regarding this visit. By signing this record, I attest that the documentation was completed in my physical presence and is an accurate record of the encounter.
[2017-07-23 16:48] VITALS: BP 117/31
== END 2017-07-23 17:23 | disposition home or self-care (01) ==
LOC: DL.ED 13:40
DX: G40.909 Epilepsy, unspecified, not intractable, without status epilepticus (principal); F15.10 Other stimulant abuse, uncomplicated; E87.6 Hypokalemia; R89.2 Abnormal level of other drugs, medicaments and biological substances in specimens from other organs, systems and tissues; K21.9 Gastro-esophageal reflux disease without esophagitis; F41.9 Anxiety disorder, unspecified; E11.9 Type 2 diabetes mellitus without complications; Z90.49 Acquired absence of other specified parts of digestive tract; Z87.891 Personal history of nicotine dependence; Z79.899 Other long term (current) drug therapy; Z88.1 Allergy status to other antibiotic agents; Z88.2 Allergy status to sulfonamides; Z88.6 Allergy status to analgesic agent; Z88.8 Allergy status to other drugs, medicaments and biological substances; Z88.0 Allergy status to penicillin
CPT/HCPCS: 36415; 71010; 80053; 80185; 80305; 81001; 82550; 83615; 85025; 96365; 96367; 96375; 99284; G0480; J1165; J3360; J3480; J7030; J7050

== ENCOUNTER 2017-12-22 10:33 | Emergency (ER) | payer MEDICAID ==
[2017-12-22 10:41] VITALS: BP 118/67
--- NOTE | 2017-12-22 10:49 | EDM.PDOC ---
ED HPI GENERAL MEDICAL PROBLEM - General Chief Complaint: Neuro Symptoms/Deficits Stated Complaint: BY AMBULANCE, SEIZURES Time Seen by Provider: 12/22/17 10:44 Source of Information: Reports: Patient, EMS, Old Records, RN, RN Notes Reviewed History Limitations: Reports: No Limitations - History of Present Illness INITIAL COMMENTS - FREE TEXT/NARRATIVE: Arrives from [facility] by ambulance with c/o that pt felt like she was about to have a seizure. Paramedics state that when they arrived pt was at the [facility] customer service counter returning some items, awake and functioning normally. Pt states she forgot to take her seizure medicine, and while shopping had the feeling (she can't describe what she experiences prior to having a seizure) she gets just before having a seizure, so she took her medicine. Pt states that she didn't end up having a seizure, but the ambulance brought her here anyway. Pt denies any current complaints. Pt states she would like to have her blood sugar checked, but otherwise does not wish to have labs or any workup done by the ER because she feels fine. Pt states that the [facility] "people" called the ambulance , she did not. Onset: Today, Sudden Duration: Resolved Prior to Arrival Location: Reports: Generalized Severity: Mild Improves with: Reports: Medication Worsens with: Reports: None Associated Symptoms: Reports: No Other Symptoms Treatments PAID INTERNSHIP: Reports: Other Medication(s) - Related Data Allergies Allergy/AdvReac Type Severity Reaction Status Date / Time ibuprofen [From Motrin] Allergy Unknown NAUSEA,VOMI Verified 05/25/17 20:16 TING omeprazole [From Prilosec] Allergy Unknown Rash Verified 12/22/17 10:42 omeprazole magnesium Allergy Unknown Rash Verified 12/22/17 10:42 [From Prilosec] sulfamethoxazole Allergy Unknown UKNOWN Verified 12/22/17 10:42 [From Bactrim] trimethoprim [From Bactrim] Allergy Unknown [place]OWN Verified 12/22/17 10:42 amoxicillin [Amoxicillin] Allergy Hives Verified 12/22/17 10:42 aspirin Allergy Bleeding Verified 12/22/17 10:42 codeine Allergy Stomach Verified 12/22/17 10:42 Upset doxycycline Allergy Rash Verified 12/22/17 10:42 fosphenytoin [Fosphenytoin] Allergy Hives Verified 12/22/17 10:42 meperidine HCl [From Demerol] Allergy Rash Verified 12/22/17 10:42 Penicillins Allergy Stomach Verified 12/22/17 10:42 Upset PRILOSE Allergy Unknown Rash Uncoded 12/22/17 10:42 Home Meds: Home Meds PHENobarbital 30 mg PO QID 01/28/14 [History] Phenytoin Sodium Extended [Dilantin] 100 mg PO TID 03/28/14 [History] PARoxetine HCl [Paroxetine HCl] 10 mg PO DAILY 11/28/16 [History] Albuterol [Proventil HFA] 2 puff INH ASDIRECTED PRN 07/23/17 [History] Melatonin 5 mg PO ASDIRECTED PRN 07/23/17 [History] diphenhydrAMINE [Benadryl] 1 cap PO BEDTIME PRN 07/23/17 [History] Phenytoin Sodium Extended [Dilantin] 200 mg PO BEDTIME 12/22/17 [History] Past Medical History HEENT History: Reports: Impaired Vision Respiratory History: Reports: Asthma, Bronchitis, Recurrent, COPD Other Respiratory History: states she was told her left lung was swollen at one time Gastrointestinal History: Reports: GERD Genitourinary History: Reports: Urinary Incontinence Neurological History: Reports: Frequent Repetitive Habits (TICS), Seizure Psychiatric History: Reports: Addiction, Anxiety Endocrine/Metabolic History: Reports: Diabetes, Type II Other Dermatologic History: takes Benadryl daily for itchy skin - Past Surgical History GI Surgical History: Reports: Cholecystectomy Social & Family History - Family History Family Medical History: Noncontributory - Tobacco Use Smoking Status *Q: Former Smoker Years of Tobacco use: 4 Packs/Tins Daily: 0.5 Used Tobacco, but Quit: Yes Month Tobacco Last Used: 2014 Second Hand Smoke Exposure: No - Caffeine Use Caffeine Use: Reports: Coffee, Soda - Alcohol Use Days Per Week of Alcohol Use: 0 - Recreational Drug Use Recreational Drug Use: No Recreational Drug Type: Reports: Methamphetamine - Living Situation & Occupation Living situation: Reports: with Family Occupation: Disabled ED ROS GENERAL - Review of Systems Review Of Systems: ROS reveals no pertinent complaints other than HPI. - Physical Exam Exam: See Below Exam Limited By: No Limitations General Appearance: Alert, WD/WN, No Apparent Distress Eye Exam: Right Eye: Normal Inspection (chronic left eye blindness) Ears: Hearing Grossly Normal Nose: Normal Inspection Throat/Mouth: Normal Lips, Normal Oropharynx, Normal Voice, No Airway Compromise. No: Normal Teeth Head Exam: Atraumatic, Normocephalic Neck: Normal Inspection Respiratory/Chest: No Respiratory Distress, Lungs Clear, No Accessory Muscle Use , Chest Non-Tender Cardiovascular: Regular Rate, Rhythm, No Edema GI/Abdominal: Normal Bowel Sounds, Soft, Non-Tender, No Distention (Female) Exam: Deferred Rectal (Female) Exam: Deferred Neuro Exam (Abbreviated): Alert, Oriented, CN II-XII Intact, Normal Cognition, Normal Gait, No Motor/Sensory Deficits Back Exam: Normal Inspection Extremities: Normal Inspection Psychiatric: Normal Affect, Normal Mood Skin Exam: Warm, Dry, Intact, Normal Color, No Rash Course - Vital Signs Last Recorded V/S: Last Vital Signs Temp 35.9 C 12/22/17 10:34 Pulse 74 12/22/17 10:34 Resp 16 12/22/17 10:34 BP 118/67 12/22/17 10:34 Pulse Ox 98 12/22/17 10:34 - Orders/Labs/Meds Orders: Active Orders 24 hr Category Date Time Status Blood Glucose Check, Bedside [RC] ONETIME Care 12/22/17 10:56 Active Labs: Accu Check Blood Glucose: 89 - Re-Assessments/Exams Free Text/Narrative Re-Assessment/Exam: 12/22/17 11:02 Pt given apple juice and baljinder crackers and she felt much better. D/C'd to go have lunch with her sister. Departure - Departure Time of Disposition: 11:03 Disposition: Home, Self-Care 01 Condition: Good Clinical Impression: Low blood sugar in diabetes - Discharge Information Instructions: Hypoglycemia, [id number], Blood Glucose Monitoring, Adult Forms: ED Department Discharge Additional Instructions: Go eat lunch when you are discharged from the ER today. Monitor your blood sugar to avoid symptoms of low blood sugar. Take all of your medications exactly as prescribed by your doctor. Follow up in clinic if needed. - My Orders Last 24 Hours: My Active Orders 12/22/17 10:56 Blood Glucose Check, Bedside [RC] ONETIME - Assessment/Plan Last 24 Hours: My Active Orders 12/22/17 10:56 Blood Glucose Check, Bedside [RC] ONETIME
== END 2017-12-22 11:18 | disposition home or self-care (01) ==
LOC: DL.ED 10:33
DX: E11.649 Type 2 diabetes mellitus with hypoglycemia without coma (principal); J44.9 Chronic obstructive pulmonary disease, unspecified; K21.9 Gastro-esophageal reflux disease without esophagitis; Z87.891 Personal history of nicotine dependence; Z79.899 Other long term (current) drug therapy; Z88.2 Allergy status to sulfonamides; Z88.1 Allergy status to other antibiotic agents; Z88.0 Allergy status to penicillin; Z88.5 Allergy status to narcotic agent; Z88.6 Allergy status to analgesic agent; Z88.8 Allergy status to other drugs, medicaments and biological substances
CPT/HCPCS: 82962; 99285

== ENCOUNTER 2018-02-02 00:21 | Emergency (ER) | payer MEDICAID ==
[2018-02-02 00:29] VITALS: BP 144/66
[2018-02-02] MEDS: Albuterol/Ipratropium 3.0-0.5 MG/3 ML Neb Soln NEB ONE (00:33)
[2018-02-02] MEDS: methylPREDNISolone Sodium Succinate 125 MG/2 ML SDV IVPUSH ONE (00:51)
[2018-02-02 01:20] LABS: CHLORIDE,CL 104 mmol/L (101-111); SODIUM,NA 135 mmol/L (135-145)
--- NOTE | 2018-02-02 01:33 | EDM.PDOC ---
ED HPI GENERAL MEDICAL PROBLEM - General Chief Complaint: Respiratory Problem Stated Complaint: IN BY AMBULANCE Time Seen by Provider: 02/02/18 00:25 Source of Information: Reports: Patient, EMS History Limitations: Reports: No Limitations - History of Present Illness INITIAL COMMENTS - FREE TEXT/NARRATIVE: ED with c/o SOB and cough today, productive whitish phlegm , HX COPD/asthma, continues to smoke. Tried inhaler today without relief. EMS gave Duoneb enroute. Chest Pain Score (Numeric/FACES): 6 - Related Data Allergies Allergy/AdvReac Type Severity Reaction Status Date / Time ibuprofen [From Motrin] Allergy Unknown NAUSEA,VOMI Verified 02/02/18 00:31 TING omeprazole [From Prilosec] Allergy Unknown Rash Verified 02/02/18 00:31 omeprazole magnesium Allergy Unknown Rash Verified 02/02/18 00:31 [From Prilosec] sulfamethoxazole Allergy Unknown UKNOWN Verified 02/02/18 00:31 [From Bactrim] trimethoprim [From Bactrim] Allergy Unknown UK[place]OWN Verified 02/02/18 00:31 amoxicillin [Amoxicillin] Allergy Hives Verified 02/02/18 00:31 aspirin Allergy Bleeding Verified 02/02/18 00:31 codeine Allergy Stomach Verified 02/02/18 00:31 Upset doxycycline Allergy Rash Verified 02/02/18 00:31 fosphenytoin [Fosphenytoin] Allergy Hives Verified 02/02/18 00:31 meperidine HCl [From Demerol] Allergy Rash Verified 02/02/18 00:31 Penicillins Allergy Stomach Verified 02/02/18 00:31 Upset PRILOSE Allergy Unknown Rash Uncoded 02/02/18 00:31 Home Meds: Home Meds PHENobarbital 30 mg PO QID 01/28/14 [History] Phenytoin Sodium Extended [Dilantin] 100 mg PO TID 03/28/14 [History] PARoxetine HCl [Paroxetine HCl] 10 mg PO DAILY 11/28/16 [History] Albuterol [Proventil HFA] 2 puff INH ASDIRECTED PRN 07/23/17 [History] Melatonin 5 mg PO ASDIRECTED PRN 07/23/17 [History] diphenhydrAMINE [Benadryl] 1 cap PO BEDTIME PRN 07/23/17 [History] Phenytoin Sodium Extended [Dilantin] 200 mg PO BEDTIME 12/22/17 [History] Past Medical History HEENT History: Reports: Impaired Vision Other HEENT History: wrears glasses Cardiovascular History: Reports: Heart Murmur Respiratory History: Reports: Asthma, Bronchitis, Recurrent, COPD Other Respiratory History: states she was told her left lung was swollen at one time Gastrointestinal History: Reports: GERD Genitourinary History: Reports: Urinary Incontinence Musculoskeletal History: Reports: None Neurological History: Reports: Frequent Repetitive Habits (TICS), Seizure Psychiatric History: Reports: Addiction, Anxiety Endocrine/Metabolic History: Reports: Diabetes, Type II Hematologic History: Reports: None Immunologic History: Reports: None Oncologic (Cancer) History: Reports: None Other Dermatologic History: takes Benadryl daily for itchy skin - Infectious Disease History Infectious Disease History: Reports: Chicken Pox, Measles - Past Surgical History Head Surgeries/Procedures: Reports: None GI Surgical History: Reports: Cholecystectomy Social & Family History - Family History Family Medical History: Noncontributory - Tobacco Use Smoking Status *Q: Light Tobacco Smoker Years of Tobacco use: 40 Packs/Tins Daily: 0.1 Used Tobacco, but Quit: Yes Month/Year Tobacco Last Used: 2014 Second Hand Smoke Exposure: No - Caffeine Use Caffeine Use: Reports: Coffee, Soda - Alcohol Use Days Per Week of Alcohol Use: 0 - Recreational Drug Use Recreational Drug Use: No Recreational Drug Type: Reports: Methamphetamine - Living Situation & Occupation Living situation: Reports: with Family Occupation: Disabled ED ROS GENERAL - Review of Systems Review Of Systems: See Below Constitutional: Reports: Fever (unsure). Denies: Chills HEENT: Reports: No Symptoms Respiratory: Reports: Wheezing, Cough Cardiovascular: Reports: No Symptoms Endocrine: Reports: High Glucose (variable sometimes as low as 89 or as high as 400) GI/Abdominal: Reports: No Symptoms : Reports: No Symptoms Musculoskeletal: Reports: No Symptoms Skin: Reports: No Symptoms Neurological: Reports: Seizure (hx ) ED EXAM, GENERAL - Physical Exam Exam: See Below Exam Limited By: No Limitations General Appearance: Alert, No Apparent Distress, Obese Eye Exam: Right Eye: EOMI (blind left eye) Ears: Normal External Exam, Normal TMs Nose: Normal Inspection Throat/Mouth: Normal Inspection, Normal Voice Head: Atraumatic, Normocephalic Respiratory/Chest: No Respiratory Distress, Wheezing, Other (lateral chest wall tenderness with palpation). No: Rales, Rhonchi Cardiovascular: Normal Peripheral Pulses, Regular Rate, Rhythm, No Edema, No JVD GI/Abdominal: Normal Bowel Sounds, Soft, Non-Tender Back Exam: Normal Inspection Extremities: Normal Inspection Neurological: Alert, Oriented, Normal Cognition Psychiatric: Normal Affect, Normal Mood Skin Exam: Warm, Dry, Intact, Normal Color, No Rash Course - Vital Signs Last Recorded V/S: Last Vital Signs Temp 99.1 F 02/02/18 00:21 Pulse 81 02/02/18 01:41 Resp 18 02/02/18 01:41 BP 144/66 H 02/02/18 00:21 Pulse Ox 99 02/02/18 01:41 - Orders/Labs/Meds Orders: Active Orders 24 hr Category Date Time Status Glucose [Blood Glucose Check, Bedside] [RC] ONETIME Care 02/02/18 00:45 Active RT Aerosol Therapy [RC] ASDIRECTED Care 02/02/18 00:31 Active CXR [Chest 1V Frontal] [CR] Urgent Exams 02/02/18 00:40 Taken Labs: Laboratory Tests 02/02/18 02/02/18 02/02/18 Range/Units 00:50 00:50 00:57 WBC 10.2 H (5.0-10.0) 10^3/uL RBC 4.52 (4.2-5.4) 10^6/uL Hgb 12.9 (12.0-16.0) g/dL Hct 40.0 (37.0-47.0) % MCV 88.5 (80-100) fL MCH 28.5 (27.0-34.0) pg MCHC 32.3 L (33.0-35.0) g/dL Plt Count 316 (150-450) 10^3/uL Neut % (Auto) 56.4 (42.2-75.2) % Lymph % (Auto) 22.7 (20.5-50.1) % Teller % (Auto) 10.0 H (2-8) % Eos % (Auto) 10.3 H (1.0-3.0) % Baso % (Auto) 0.6 (0.0-1.0) % Sodium 135 (135-145) mmol/L Potassium 3.0 L (3.6-5.0) mmol/L Chloride 104 (101-111) mmol/L Carbon Dioxide 23.0 (21.0-31.0) mmol/L Anion Gap 11.0 BUN 10 (7-18) mg/dL Creatinine 0.6 (0.6-1.3) mg/dL Est Cr Clr Drug Dosing 95.79 mL/min Estimated GFR (MDRD) > 60 BUN/Creatinine Ratio 16.66 Glucose 115 H (74-105) mg/dL POC Glucose (70-105) mg/dl Calcium 8.1 L (8.4-10.2) mg/dl Total Bilirubin 0.2 (0.2-1.0) mg/dL AST 19 (10-42) IU/L ALT 14 (10-60) IU/L Alkaline Phosphatase 186 H (42-121) IU/L B-Natriuretic Peptide 13 (0-100) pg/ml Total Protein 7.3 (6.7-8.2) g/dl Albumin 3.5 (3.2-5.5) g/dl Globulin 3.8 Albumin/Globulin Ratio 0.92 Urine Color Yellow (YELLOW) Urine Appearance Slightly cloudy (CLEAR) Urine pH 6.0 (5.0-9.0) Ur Specific [place] 1.010 (1.005-1.030) Urine Protein Negative (NEGATIVE) Urine Glucose (UA) Negative (NEGATIVE) Urine Ketones Negative (NEGATIVE) Urine Occult Blood Negative (NEGATIVE) Urine Nitrite Negative (NEGATIVE) Urine Bilirubin Negative (NEGATIVE) Urine Urobilinogen 0.2 (0.2-1.0) mg/dL Ur Leukocyte Esterase Negative (NEGATIVE) Urine RBC 0-5 /HPF Urine WBC 0-5 (0-5/HPF) /HPF Ur Epithelial Cells Few /HPF Urine Bacteria Rare (0-FEW/HPF) /HPF Urine Mucus Rare /LPF Urine Opiates Screen (NEGATIVE) Ur Oxycodone Screen (NEGATIVE) Urine Methadone Screen (NEGATIVE) Ur Barbiturates Screen (NEGATIVE) U Tricyclic Antidepress (NEGATIVE) Ur Phencyclidine Scrn (NEGATIVE) Ur Amphetamine Screen (NEGATIVE) U Methamphetamines Scrn (NEGATIVE) Urine MDMA Screen (NEGATIVE) U Benzodiazepines Scrn (NEGATIVE) Urine Cocaine Screen (NEGATIVE) U Marijuana (THC) Screen (NEGATIVE) 02/02/18 02/02/18 Range/Units 00:57 01:01 WBC (5.0-10.0) 10^3/uL RBC (4.2-5.4) 10^6/uL Hgb (12.0-16.0) g/dL Hct (37.0-47.0) % MCV (80-100) fL MCH (27.0-34.0) pg MCHC (33.0-35.0) g/dL Plt Count (150-450) 10^3/uL Neut % (Auto) (42.2-75.2) % Lymph % (Auto) (20.5-50.1) % Teller % (Auto) (2-8) % Eos % (Auto) (1.0-3.0) % Baso % (Auto) (0.0-1.0) % Sodium (135-145) mmol/L Potassium (3.6-5.0) mmol/L Chloride (101-111) mmol/L Carbon Dioxide (21.0-31.0) mmol/L Anion Gap BUN (7-18) mg/dL Creatinine (0.6-1.3) mg/dL Est Cr Clr Drug Dosing mL/min Estimated GFR (MDRD) BUN/Creatinine Ratio Glucose (74-105) mg/dL POC Glucose 112 H (70-105) mg/dl Calcium (8.4-10.2) mg/dl Total Bilirubin (0.2-1.0) mg/dL AST (10-42) IU/L ALT (10-60) IU/L Alkaline Phosphatase (42-121) IU/L B-Natriuretic Peptide (0-100) pg/ml Total Protein (6.7-8.2) g/dl Albumin (3.2-5.5) g/dl Globulin Albumin/Globulin Ratio Urine Color (YELLOW) Urine Appearance (CLEAR) Urine pH (5.0-9.0) Ur Specific [place] (1.005-1.030) Urine Protein (NEGATIVE) Urine Glucose (UA) (NEGATIVE) Urine Ketones (NEGATIVE) Urine Occult Blood (NEGATIVE) Urine Nitrite (NEGATIVE) Urine Bilirubin (NEGATIVE) Urine Urobilinogen (0.2-1.0) mg/dL Ur Leukocyte Esterase (NEGATIVE) Urine RBC /HPF Urine WBC (0-5/HPF) /HPF Ur Epithelial Cells /HPF Urine Bacteria (0-FEW/HPF) /HPF Urine Mucus /LPF Urine Opiates Screen Negative (NEGATIVE) Ur Oxycodone Screen Negative (NEGATIVE) Urine Methadone Screen Negative (NEGATIVE) Ur Barbiturates Screen Positive H (NEGATIVE) U Tricyclic Antidepress Negative (NEGATIVE) Ur Phencyclidine Scrn Negative (NEGATIVE) Ur Amphetamine Screen Negative (NEGATIVE) U Methamphetamines Scrn Negative (NEGATIVE) Urine MDMA Screen Negative (NEGATIVE) U Benzodiazepines Scrn Negative (NEGATIVE) Urine Cocaine Screen Negative (NEGATIVE) U Marijuana (THC) Screen Negative (NEGATIVE) Meds: Medications Discontinued Medications Generic Name Dose Route Start Last Admin Trade Name Freq PRN Reason Stop Dose Admin Albuterol/Ipratropium 3 ml 02/02/18 00:31 02/02/18 00:33 Duoneb 3.0-0.5 Mg/3 Ml NEB 02/02/18 00:32 3 ml ONETIME ONE Administration Methylprednisolone Sodium Succinate 125 mg 02/02/18 00:45 02/02/18 00:51 Solu-Medrol IVPUSH 02/02/18 00:46 125 mg ONETIME ONE Administration Potassium Chloride 20 meq 02/02/18 01:33 02/02/18 01:37 Klor-Con 10 PO 02/02/18 01:34 20 meq ONETIME ONE Administration - Radiology Interpretation Free Text/Narrative:: CXR no acute changes - Re-Assessments/Exams Free Text/Narrative Re-Assessment/Exam: Improved airexchange and improvement in wheezing, Reports at baseline. Some discomfort in anterior and lateral chest only when coughing. Departure - Departure Time of Disposition: 01:38 Disposition: Home, Self-Care 01 Condition: Good Clinical Impression: Exacerbation of asthma - Discharge Information Instructions: Asthma, Adult Forms: ED Department Discharge Additional Instructions: continue with home medications albuterol inhaler 2 puffs every 4 hours as needed tylenol for discomfort humdifier in room prednisone 10mg one daily for 5 days clinic follow up for recheck on Tuesday - My Orders Last 24 Hours: My Active Orders 02/02/18 00:31 RT Aerosol Therapy [RC] ASDIRECTED 02/02/18 00:40 CXR [Chest 1V Frontal] [CR] Urgent 02/02/18 00:45 Glucose [Blood Glucose Check, Bedside] [RC] ONETIME - Assessment/Plan Last 24 Hours: My Active Orders 03/15/18 00:31 RT Aerosol Therapy [RC] ASDIRECTED 02/02/18 00:40 CXR [Chest 1V Frontal] [CR] Urgent 02/02/18 00:45 Glucose [Blood Glucose Check, Bedside] [RC] ONETIME
[2018-02-02] MEDS: Potassium Chloride 10 MEQ Tab.ER PO ONE (01:37)
== END 2018-02-02 01:49 | disposition home or self-care (01) ==
LOC: DL.ED 00:21
DX: J45.901 Unspecified asthma with (acute) exacerbation (principal); E11.9 Type 2 diabetes mellitus without complications; F17.210 Nicotine dependence, cigarettes, uncomplicated; Z88.6 Allergy status to analgesic agent; Z88.2 Allergy status to sulfonamides; Z88.1 Allergy status to other antibiotic agents; Z88.0 Allergy status to penicillin; Z88.8 Allergy status to other drugs, medicaments and biological substances; Z79.899 Other long term (current) drug therapy
CPT/HCPCS: 36415; 71045; 80053; 80305; 81001; 82962; 83880; 85025; 96374; 99285; A9270; J2930

== ENCOUNTER 2019-12-04 20:19 | Emergency (ER) | payer MEDICAID, OTHER ==
[2019-12-04 20:31] VITALS: BP 108/55; PULSE 77
[2019-12-04] MEDS ORDERED: Clindamycin HCl 150 MG Cap PO ONE (20:59)
--- NOTE | 2019-12-04 21:02 | EDM.PDOC ---
ED HPI GENERAL MEDICAL PROBLEM - General Chief Complaint: General Stated Complaint: AMBULANCE Time Seen by Provider: 12/04/19 20:30 Source of Information: Reports: Patient, EMS History Limitations: Reports: No Limitations - History of Present Illness INITIAL COMMENTS - FREE TEXT/NARRATIVE: ED with c/o pain to scalp and "bumps on head. Reports fevers/ chills in am and afternoon. Headache Pain Score (Numeric/FACES): 7 - Related Data Allergies Allergy/AdvReac Type Severity Reaction Status Date / Time ibuprofen [From Motrin] Allergy Unknown NAUSEA,VOMI Verified 11/14/18 19:04 TING omeprazole [From Prilosec] Allergy Unknown Rash Verified 11/14/18 19:04 omeprazole magnesium Allergy Unknown Rash Verified 11/14/18 19:04 [From Prilosec] sulfamethoxazole Allergy Unknown [place] Verified 11/14/18 19:04 [From Bactrim] trimethoprim [From Bactrim] Allergy Unknown [place] Verified 11/14/18 19:04 amoxicillin [Amoxicillin] Allergy Hives Verified 11/14/18 19:04 aspirin Allergy Bleeding Verified 11/14/18 19:04 codeine Allergy Stomach Verified 11/14/18 19:04 Upset doxycycline Allergy Rash Verified 11/14/18 19:04 fosphenytoin [Fosphenytoin] Allergy Hives Verified 11/14/18 19:04 meperidine HCl [From Demerol] Allergy Rash Verified 11/14/18 19:04 Penicillins Allergy Stomach Verified 11/14/18 19:04 Upset PRILOSE Allergy Unknown Rash Uncoded 11/14/18 19:04 Home Meds: Home Meds PHENobarbitaL [PHENobarbital] 32.4 mg PO QID 01/28/14 [History] PARoxetine HCl [Paroxetine HCl] 50 mg PO DAILY 11/28/16 [History] Albuterol [Proventil HFA] 2 puff INH ASDIRECTED PRN 07/23/17 [History] Phenytoin Sodium Extended [Dilantin] 100 mg PO QID 12/22/17 [History] Cetirizine [ZyrTEC] 10 mg PO DAILY 10/17/18 [History] Indomethacin [Indocin] 25 mg PO BID 10/17/18 [History] Mometasone/Formoterol [Dulera 200-5 MCG] 2 puff IH DAILY 10/17/18 [History] Gabapentin [Neurontin] 100 mg PO BID 11/14/18 [History] Hydrocodone/Acetaminophen [Hydrocodon-Acetaminophen 5-325] 1 tab PO Q6HR [History] Past Medical History HEENT History: Reports: Impaired Vision Other HEENT History: wrears glasses Cardiovascular History: Reports: Heart Murmur Respiratory History: Reports: Asthma, Bronchitis, Recurrent, COPD Other Respiratory History: states she was told her left lung was swollen at one time Gastrointestinal History: Reports: GERD Genitourinary History: Reports: Urinary Incontinence SPINNER CONTINUOUS History: Reports: Other (See Below) Other SPINNER CONTINUOUS History: ovarian cyst Musculoskeletal History: Reports: None Neurological History: Reports: Frequent Repetitive Habits (TICS), Seizure Psychiatric History: Reports: Addiction, Anxiety Endocrine/Metabolic History: Reports: Diabetes, Type II Hematologic History: Reports: None Immunologic History: Reports: None Oncologic (Cancer) History: Reports: None Other Dermatologic History: takes Benadryl daily for itchy skin - Infectious Disease History Infectious Disease History: Reports: Chicken Pox, Measles - Past Surgical History Head Surgeries/Procedures: Reports: None GI Surgical History: Reports: Cholecystectomy Female Surgical History: Reports: Hysterectomy, Other (See Below) Other Female Surgeries/Procedures: partial oophorectomy Social & Family History - Family History Family Medical History: Noncontributory - Tobacco Use Smoking Status *Q: Current Every Day Smoker Years of Tobacco use: 33 Packs/Tins Daily: 0.1 Second Hand Smoke Exposure: Yes - Caffeine Use Caffeine Use: Reports: Coffee, Tea - Recreational Drug Use Recreational Drug Use: No - Living Situation & Occupation Living situation: Reports: with Family Occupation: Disabled ED ROS GENERAL - Review of Systems Review Of Systems: Comprehensive ROS is negative, except as noted in HPI. ED EXAM, GENERAL - Physical Exam Exam: See Below Exam Limited By: No Limitations General Appearance: Alert, No Apparent Distress, Obese Eye Exam: Bilateral Eye: EOMI Ears: Normal External Exam, Normal TMs Nose: Normal Inspection Throat/Mouth: Normal Inspection Head: Normocephalic, Other (crusted scalp lesions right mid parietal , lice, multiple nit thick infestation of eggs) Neck: Full Range of Motion, Lymphadenopathy (L) Respiratory/Chest: No Respiratory Distress, Lungs Clear Cardiovascular: Normal Peripheral Pulses, Regular Rate, Rhythm GI/Abdominal: Normal Bowel Sounds, Soft Back Exam: Normal Inspection Neurological: Alert, Oriented Psychiatric: Normal Mood Skin Exam: Wound/Incision (scalp) Course - Vital Signs Last Recorded V/S: Last Vital Signs Temp 99.8 F 12/04/19 20:22 Pulse 77 12/04/19 20:22 Resp 18 12/04/19 20:22 BP 108/55 L 12/04/19 20:22 Pulse Ox 99 12/04/19 20:22 - Orders/Labs/Meds Labs: Laboratory Tests 12/04/19 12/04/19 12/04/19 Range/Units 20:53 20:53 20:59 WBC 13.7 H (5.0-10.0) 10^3/uL RBC 4.52 (4.2-5.4) 10^6/uL Hgb 13.7 D (12.0-16.0) g/dL Hct 40.6 (37.0-47.0) % MCV 89.8 D (80-100) fL MCH 30.3 (27.0-34.0) pg MCHC 33.7 (33.0-35.0) g/dL Plt Count 280 D (150-450) 10^3/uL Neut % (Auto) 78.1 H (42.2-75.2) % Lymph % (Auto) 8.0 L (20.5-50.1) % [place] % (Auto) 12.3 H (2-8) % Eos % (Auto) 1.4 (1.0-3.0) % Baso % (Auto) 0.2 (0.0-1.0) % Sodium 135 (135-145) mmol/L Potassium 3.3 L (3.6-5.0) mmol/L Chloride 102 (101-111) mmol/L Carbon Dioxide 24.0 (21.0-31.0) mmol/L Anion Gap 12.3 BUN 11 (7-18) mg/dL Creatinine 0.7 (0.6-1.3) mg/dL Est Cr Clr Drug Dosing 76.88 mL/min Estimated GFR (MDRD) > 60 BUN/Creatinine Ratio 15.71 Glucose 102 (74-105) mg/dL POC Glucose 95 (70-105) mg/dl Calcium 8.3 L (8.4-10.2) mg/dl Total Bilirubin 0.3 (0.2-1.0) mg/dL AST 24 (10-42) IU/L ALT 27 (10-60) IU/L Alkaline Phosphatase 140 H (42-121) IU/L Total Protein 7.6 (6.7-8.2) g/dl Albumin 3.7 (3.2-5.5) g/dl Globulin 3.9 Albumin/Globulin Ratio 0.95 Meds: Medications Discontinued Medications Generic Name Dose Route Start Last Admin Trade Name Boq PRN Reason Stop Dose Admin Clindamycin HCl 300 mg 12/04/19 20:59 12/04/19 21:30 Cleocin PO 12/04/19 21:00 300 mg ONETIME ONE Administration Departure - Departure Time of Disposition: 21:09 Disposition: Home, Self-Care 01 Condition: Good Clinical Impression: Lymphadenopathy of head and neck region, Head lice, Skin lesion of scalp - Discharge Information *PRESCRIPTION DRUG MONITORING PROGRAM REVIEWED*: No *COPY OF PRESCRIPTION DRUG MONITORING REPORT IN PATIENT SEAN: No Instructions: Lice, Adult, Lymphadenopathy Forms: ED Department Discharge Additional Instructions: over counter antibiotic ointment to sores on scalp treat head lice tylenol 650mg every 6 hours as needed for discomfort clindamycin 300mg three times daily for one week Recheck clinic if not improving Sepsis Event Note - Evaluation Sepsis Screening Result: No Definite Risk - Focused Exam Date Exam was Performed: 12/09/19 Time Exam was Performed: 09:34
[2019-12-04 21:18] LABS: ANION GAP 12.3; CHLORIDE,CL 102 mmol/L (101-111); SODIUM,NA 135 mmol/L (135-145)
== END 2019-12-04 21:41 | disposition home or self-care (01) ==
LOC: DL.ED 20:19
DX: R59.1 Generalized enlarged lymph nodes (principal); L98.8 Other specified disorders of the skin and subcutaneous tissue; B85.0 Pediculosis due to Pediculus humanus capitis; E11.9 Type 2 diabetes mellitus without complications; J44.9 Chronic obstructive pulmonary disease, unspecified; K21.9 Gastro-esophageal reflux disease without esophagitis; F41.9 Anxiety disorder, unspecified; F17.210 Nicotine dependence, cigarettes, uncomplicated; Z88.1 Allergy status to other antibiotic agents; Z88.2 Allergy status to sulfonamides; Z88.8 Allergy status to other drugs, medicaments and biological substances; Z88.5 Allergy status to narcotic agent; Z88.0 Allergy status to penicillin; Z79.899 Other long term (current) drug therapy
CPT/HCPCS: 36415; 80053; 82962; 85025; 99284; A9270